=== PATIENT | female | born 1955 | race Two or more races ===

== ENCOUNTER → 2025-03-25 | Emergency (ER) | payer OTHER ==
[~2025-03-25] VITALS: Ht 167.6 cm; Wt 77.1 kg
[~2025-03-25] MED LIST: ASPIRIN 325 MG TABLET PO ONE; IRBESARTAN-HCT1 EAC1 PO
== END | disposition home or self-care (01) ==
LOC: ER 10:32
DX: R07.9 Chest pain, unspecified (principal); Z88.2 Allergy status to sulfonamides; I10 Essential (primary) hypertension